=== PATIENT | female | born 1955 | race Caucasian/White ===

== ENCOUNTER 2017-07-07 10:53 | Day surgery (SDC) | payer OTHER, MEDICARE ==
[2017-07-07] MEDS ORDERED: Betamethasone Acetate/Betamethasone Sod Phosphate 30 MG/5 ML MDV ONE (11:37)
[2017-07-07] MEDS ORDERED: Lidocaine 2% 5 ML SDV ONE (11:38)
[2017-07-07] MEDS ORDERED: Iopamidol 408 MG/ML 50 ML SDV ONE (11:39)
[2017-07-07] MEDS ORDERED: Ropivacaine 0.5% 5 MG/ML 30 ML SDV ONE (11:39)
--- NOTE | 2017-07-07 20:03 | OR ---
SURGEON: Kanwal Medley D.O. DATE OF PROCEDURE: 07/07/2017 OR STAFF PRESENT: 1. Tiana Oshea. 2. Jovanna Coburn. 3. RT. Sherwin WOUND CLASSIFICATION: I. PREOPERATIVE DIAGNOSES: 1. Lumbar degenerative disk disease. 2. Lumbar spondylosis. 3. Lumbar radiculopathy. POSTOPERATIVE DIAGNOSES: 1. Lumbar degenerative disk disease. 2. Lumbar spondylosis. 3. Lumbar radiculopathy. PROCEDURE PERFORMED: 1. Caudal epidural steroid injection. 2. Fluoroscopic guidance for needle placement. 3. Local with oral Valium for sedation. SCREENING QUESTIONS: The patient answered "no" to all of the following questions: 1. Are you allergic to latex? 2. Do you have a bleeding disorder? 3. Do you have any current local or systemic infections? 4. Are you taking any anti-inflammatories or blood thinners? 5. Do you have any joint replacements, heart valve replacements, or a pacemaker? DESCRIPTION OF PROCEDURE: The patient had the procedure thoroughly explained including all possible risks, benefits and alternatives. Consent was signed in my clinic indicating understanding and willingness to proceed. The patient presented to [facility] and was escorted to the dressing room to disrobe and change into a hospital gown. Preoperative vital signs were taken and stable. The patient reported that Valium was taken prior to the procedure. The patient was brought back to the procedure room and placed in the prone position on the procedure room table. A pillow was placed under the hips in order to flatten the lumbar lordosis. The back was prepped with ChloraPrep and sterilely draped. All personnel in the operating room were dressed in appropriate attire including surgical scrubs, head and shoe covers. This was to ensure sterility while in the treatment room. During the time fluoroscopy was in use, all personnel in the operating room wore lead cosme with thyroid collars. Sterile technique was used throughout the procedure. The patient was awake and conversant throughout the procedure. There was no evidence of infection at the site of needle insertion. Skeletal landmarks were identified under fluoroscopy for the caudal epidural. Skin was anesthetized with 2% lidocaine with a sterile 27-gauge 1.5 inch needle. Then a 20-gauge Tuohy epidural needle was placed in the epidural space with loss of resistance technique under fluoroscopic guidance. No heme, cerebrospinal fluid, or paresthesias were noted. Isovue-200 contrast dye was injected in 0.2 cubic centimeter increments and seen to outline the epidural space in both AP and lateral views. There was no intravascular flow pattern observed under live fluoroscopy. Then 12 milligrams of Celestone was slowly injected after negative aspiration. The patient tolerated the procedure well. Vital signs were stable during and after the procedure. The staff escorted the patient to the recovery area and the patient was released in stable condition after a brief stay in the recovery room monitored by the nurse. The patient was given both oral and written discharge and follow up instructions with recommendation to follow up given for 2-3 weeks. The patient voiced understanding including understanding of those signs and symptoms that would require emergency care. The patient knows how to contact the office if there are any additional problems or questions in the meantime. PREOPERATIVE PAIN: 8/10. POSTOPERATIVE PAIN: 0/10. FOLLOWUP: Follow up in the Pain Clinic in [address]. [address] / ADDI /[id number] VIRGIL
== END 2017-07-07 14:33 ==
LOC: MW.SDS 10:53
PROVIDERS: ATTEND Anesthesiology
DX: M51.16 Intervertebral disc disorders with radiculopathy, lumbar region (principal); M47.896 Other spondylosis, lumbar region; F41.9 Anxiety disorder, unspecified; F32.9 Major depressive disorder, single episode, unspecified; I10 Essential (primary) hypertension; E66.9 Obesity, unspecified; E11.9 Type 2 diabetes mellitus without complications; G47.30 Sleep apnea, unspecified; Z79.82 Long term (current) use of aspirin; Z79.84 Long term (current) use of oral hypoglycemic drugs; Z79.899 Other long term (current) drug therapy
CPT/HCPCS: 62323; J0702; J2795; Q9966

== ENCOUNTER 2021-02-27 06:24 | Day surgery (SDC) | payer MEDICARE, OTHER ==
[~2021-02-27 06:24] MED LIST: Acetaminophen 1,000 MG in Premix Bag 1 BAG IV ONE
[2021-02-27] MEDS ORDERED: Lactated Ringers 1,000 ML IV SCH (06:45)
--- NOTE | 2021-02-27 07:09 | PCM.PREANE ---
Preanesthetic Assessment - Procedure Proposed Procedure: EGD - Anesthesia/Transfusion/Family Hx Anesthesia History: Prior Anesthesia Without Reaction Other Type of Anesthesia Reaction Comment: "spinal's dont work for me" "I woke up during my knee replacement" Family History of Anesthesia Reaction: No Transfusion History: No Prior Transfusion(s) - Review of Systems General: No Symptoms Pulmonary: No Symptoms (Remote smoking hx, LESLYE does NOT use CPAP) Cardiovascular: No Symptoms (HTN, HLD) Gastrointestinal: No Symptoms (Occas Heartburn) Neurological: No Symptoms Other: Reports: Diabetes (NIDDM with BG this AM of 107) - Physical Assessment NPO Status Date: 02/26/21 NPO Status Time: 18:00 Vital Signs: Last Vital Signs Temp 98.4 F 02/27/21 06:33 Pulse 83 02/27/21 06:33 Resp 16 02/27/21 06:33 BP 147/76 H 02/27/21 06:33 Pulse Ox 97 02/27/21 06:33 Height: 5 ft 1 in Weight: 108.409 kg ASA Class: 3 Mental Status: Alert & Oriented x3 Airway Class: Mallampati = 3 Dentition: Reports: Dentures (Upper full denture) Thyro-Mental Finger Breadths: 3 Mouth Opening Finger Breadths: 3 ROM/Head Extension: Full Lungs: Clear to Auscultation, Normal Respiratory Effort Cardiovascular: Regular Rate, Regular Rhythm - Allergies Allergies/Adverse Reactions: Allergies Allergy/AdvReac Type Severity Reaction Status Date / Time No Known Allergies Allergy Verified 02/21/21 10:45 - Acknowledgements Anesthesia Type Planned: General Anesthesia Pt an Appropriate Candidate for the Planned Anesthesia: Yes Alternatives and Risks of Anesthesia Discussed w Pt/Guardian: Yes Pt/Guardian Understands and Agrees with Anesthesia Plan: Yes PreAnesthesia Questionnaire HEENT History: Reports: Impaired Vision Other HEENT History: wears glasses, has upper denture Cardiovascular History: Reports: High Cholesterol, Hypertension Respiratory History: Reports: Sleep Apnea Other Respiratory History: does NOT use CPAP (unable to tolerate the mask) Gastrointestinal History: Reports: GERD Genitourinary History: Reports: None HOG CUTTER History: Reports: Musculoskeletal History: Reports: Arthritis, Back Pain, Chronic Other Musculoskeletal History: DDD Neurological History: Reports: Vertigo Psychiatric History: Reports: Anxiety, Depression Endocrine/Metabolic History: Reports: Diabetes, Type II, Obesity/BMI 30+ Hematologic History: Reports: None Immunologic History: Reports: None Oncologic (Cancer) History: Reports: None Dermatologic History: Reports: None - Past Surgical History Head Surgeries/Procedures: Reports: None HEENT Surgical History: Reports: Adenoidectomy, Cataract Surgery, Tonsillectomy, Other (See Below) Other HEENT Surgeries/Procedures: pt. states had "removal of ear drum" Cardiovascular Surgical History: Reports: None Respiratory Surgical History: Reports: None GI Surgical History: Reports: Colonoscopy, EGD Female Surgical History: Reports: Hysterectomy Endocrine Surgical History: Reports: None Neurological Surgical History: Reports: None Musculoskeletal Surgical History: Reports: Arthroscopic Knee, Carpal Tunnel, Knee Replacement, Shoulder Surgery Other Musculoskeletal Surgeries/Procedures:: bilateral knee replacements, CTR, schoulder arthroscopy with removal of bone spur Oncologic Surgical History: Reports: None Dermatological Surgical History: Reports: None - SUBSTANCE USE Tobacco Use Status *Q: Never Tobacco User Recreational Drug Use History: No - HOME MEDS Home Medications: Home Meds Furosemide 40 mg PO DAILY 03/10/14 [History] Metoprolol Succinate [Toprol XL 100mg] 100 mg PO BRK 03/10/14 [History] Potassium Chloride [Klor-Con M20] 20 meq PO DAILY 03/10/14 [History] Aspirin [Adult Low Dose Aspirin EC] 81 mg PO DAILY 09/24/15 [History] Butalbital/Acetaminophen [Butalbital-Acetaminophn 50-325] 1 - 2 tab PO ASDIRECTED PRN 02/21/21 [History] DULoxetine HCl [Cymbalta] 30 mg PO DAILY 02/21/21 [History] Gabapentin [Neurontin] 1 - 2 tab PO ASDIRECTED 02/21/21 [History] Omeprazole 20 mg PO DAILY 02/21/21 [History] Pravastatin Sodium 20 mg PO DAILY 02/21/21 [History] Semaglutide [Ozempic] 1 injection SUBCUT WEEKLY 02/21/21 [History] bisacodyL [Dulcolax] 1 - 2 tab PO DAILY PRN 02/21/21 [History] metFORMIN HCl [Metformin HCl] 1,000 mg PO WITHBREAKFAST 02/21/21 [History] polyethylene glycoL 3350 [Miralax] 1 dose PO ASDIRECTED PRN 02/21/21 [History] valACYclovir HCl [valACYclovir] 2 tab PO ASDIRECTED PRN 02/21/21 [History] - CURRENT (IN HOUSE) MEDS Current Meds: Current Medications Lactated Ringer's (Ringers, Lactated) 1,000 mls @ 100 mls/hr IV ASDIRECTED [facility] Last Admin: 02/27/21 06:58 Dose: 100 mls/hr Documented by: Discontinued Medications Acetaminophen 1,000 mg/ Premix 100 mls @ 400 mls/hr IV ONCALL ONE Stop: 02/15/21 11:32
[2021-02-27] MEDS ORDERED: fentaNYL 100 MCG/2 ML SDV ONE (07:15)
[2021-02-27] MEDS ORDERED: Propofol 200 MG/20 ML SDV ONE (07:15)
--- NOTE | 2021-02-27 08:11 | PCM.OPNOTE ---
- General Post-Op/Procedure Note Date of Surgery/Procedure: 02/27/21 Operative Procedure(s): EGD with biopsies Findings: Mild gastritis and duodenitis dictation number [id number] Pre Op Diagnosis: Nausea and vomiting, abdominal bloating Post-Op Diagnosis: Mild gastritis and duodenitis Primary Surgeon: Jr Viera Pathology: Biopsies Complications: None Condition: Good
--- NOTE | 2021-02-27 08:20 | PCM.POSTAN ---
POST ANESTHESIA ASSESSMENT - MENTAL STATUS Mental Status: Alert, Oriented - VITAL SIGNS Vital Signs: Last Vital Signs Temp 98.4 F 02/27/21 06:33 Pulse 83 02/27/21 06:33 Resp 16 02/27/21 06:33 BP 147/76 H 02/27/21 06:33 Pulse Ox 97 02/27/21 06:33 - RESPIRATORY Respiratory Status: Respiratory Rate WNL, Airway Patent, O2 Saturation Stable - CARDIOVASCULAR CV Status: Pulse Rate WNL, Blood Pressure Stable - GASTROINTESTINAL GI Status: No Symptoms - PAIN Pain Score: 0 - POST OP HYDRATION Hydration Status: Adequate & Stable
--- NOTE | 2021-02-27 08:27 | PCM48HPAN ---
Post Anesthesia Note - EVALUATION WITHIN 48HRS OF ANESTHETIC Vital Signs in Normal Range: Yes Patient Participated in Evaluation: Yes Respiratory Function Stable: Yes Airway Patent: Yes Cardiovascular Function Stable: Yes Hydration Status Stable: Yes Pain Control Satisfactory: Yes Nausea and Vomiting Control Satisfactory: Yes Mental Status Recovered: Yes Vital Signs: Last Vital Signs Temp 97.9 F 02/27/21 08:12 Pulse 83 02/27/21 08:22 Resp 18 02/27/21 08:22 BP 129/60 02/27/21 08:22 Pulse Ox 95 02/27/21 08:22 - COMMENTS/OBSERVATIONS Free Text/Narrative:: Pt doing well post-op. VSS. No apparent anesthetic complications. Dr. Nehemias Gottlieb
[2021-02-27 08:32] VITALS: BP 104/76; PULSE 78
--- NOTE | 2021-02-27 15:05 | OR ---
SURGEON: FANY LAWRENCE MD DATE OF PROCEDURE: 02/27/2021 PREOPERATIVE DIAGNOSES: 1. Nausea. 2. Vomiting. 3. Abdominal bloating. POSTOPERATIVE DIAGNOSES: 1. Mild gastritis. 2. Some minimal duodenitis. PROCEDURE PERFORMED: Esophagogastroduodenoscopy with cold biopsies. ANESTHESIA: With Anesthesia. EXTENT OF ESOPHAGOGASTRODUODENOSCOPY: To the duodenum. LIMITATIONS: None. REASON FOR PROCEDURE: The patient is a pleasant 65-year-old female who said that she had one day of nausea, vomiting, and abdominal cramps and was vomiting 5 times a day. She denies any issues with swallowing. She also was having some chronic migraines. She says her migraines got away, and her nausea and vomiting have improved, but she still gets some abdominal bloating, especially now after eating, but she says her symptoms seem to be slowly going away. PROCEDURE IN DETAIL: Physical exam was performed. The major risks and benefits associated with the procedure were explained to the patient in detail. The patient verbalized understanding of the same. The patient was then connected to the appropriate devices and IV started. EKG, pulse, pulse oximetry, blood pressure, and capnography were monitored throughout the entire procedure. Continuous oxygen and sedation were provided by the anesthesiologist. After a time-out was performed, the patient's sedation was began. After adequate sedation was achieved, an upper endoscope was advanced under direct visualization without difficulty in the upper GI tract. The anatomy and mucosa of the esophagus, GE junction, stomach, pylorus, and duodenum were inspected. The duodenum bulb had a little bit of irritation and some duodenitis, but on further advancement, the mucosa became more normal. Biopsies were taken of the duodenal bulb. The scope was brought back to the pylorus, and both retro and antegrade views of the stomach were done. Again, the patient had some mild gastritis, but no ulcerations. I did do biopsies of the antrum and pylorus area to check for H pylori. I also did some random biopsies of the stomach body. The scope was brought to the GE junction. GE junction had a good Z-line with a good squamocolumnar junction. The GE junction was at approximately 35 cm from her incisors. The scope was brought up into the stomach. The stomach was deinsufflated. The scope was then brought up through the esophagus. Esophagus also felt normal. The scope was completely removed, and the procedure was terminated. ENDOSCOPIC DIAGNOSIS: Some mild gastritis and duodenitis. RECOMMENDATIONS: The patient is follow up in clinic to go over the pathology. She should continue on her omeprazole. APRIL FONTANA /[id number]
== END 2021-02-27 08:55 | disposition home or self-care (01) ==
LOC: MW.SDS 06:24
PROVIDERS: ATTEND Surgery
DX: K29.00 Acute gastritis without bleeding (principal); K29.50 Unspecified chronic gastritis without bleeding; B96.81 Helicobacter pylori [H. pylori] as the cause of diseases classified elsewhere; K29.80 Duodenitis without bleeding; G89.29 Other chronic pain; I10 Essential (primary) hypertension; G43.909 Migraine, unspecified, not intractable, without status migrainosus; E66.01 Morbid (severe) obesity due to excess calories; G47.30 Sleep apnea, unspecified; E11.9 Type 2 diabetes mellitus without complications; Z79.82 Long term (current) use of aspirin; Z79.899 Other long term (current) drug therapy; Z79.84 Long term (current) use of oral hypoglycemic drugs; Z90.49 Acquired absence of other specified parts of digestive tract; Z98.890 Other specified postprocedural states; Z68.42 Body mass index [BMI] 45.0-49.9, adult
CPT/HCPCS: 43239; 82947; 88305; 88342; J2704; J3010; J7120; 00731

== ENCOUNTER 2021-07-10 10:22 | Day surgery (SDC) | payer MEDICARE, OTHER ==
[~2021-07-10 10:22] MED LIST changes: -Acetaminophen 1,000 MG in Premix Bag 1 BAG IV ONE; +Acetaminophen 1,000 MG in Premix Bag 1 BAG IV SCH; +Albuterol 0.083% 2.5 MG/3 ML Neb Soln NEB PRN; +HYDROmorphone 1 MG/ML Syringe IVPUSH PRN; +Lactated Ringers 1,000 ML IV SCH; +Metoclopramide 10 MG/2 ML SDV IVPUSH PRN; +Morphine 4 MG/ML VIAL IVPUSH PRN; +Naloxone 0.4 MG/ML SDV IVPUSH PRN; +Ondansetron 4 MG/2 ML SDV IVPUSH PRN; +Pregabalin 75 MG Cap PO SCH; +Scopolamine 1.5 MG Transdermal Patch ONE; +cefOXitin 2 GM in Premix Bag 1 BAG IV SCH; +fentaNYL 100 MCG/2 ML SDV IVPUSH PRN
[2021-07-10] MEDS ORDERED: Octyl 2-Cyanoacrylate 1 Tube ONE (10:29)
[2021-07-10] MEDS ORDERED: Pregabalin 75 MG Cap ONE (11:28)
[2021-07-10] MEDS ORDERED: Propofol 200 MG/20 ML SDV ONE (11:37)
[2021-07-10] MEDS ORDERED: Dexamethasone 4 MG/ML 5 ML MDV ONE (11:39)
[2021-07-10] MEDS ORDERED: Midazolam 1 MG/ML 2 ML SDV ONE (11:39)
[2021-07-10] MEDS ORDERED: Ondansetron 4 MG/2 ML SDV ONE (11:39)
[2021-07-10] MEDS ORDERED: Rocuronium Bromide 50 MG/5 ML Syringe ONE (11:39)
[2021-07-10] MEDS ORDERED: fentaNYL 250 MCG/5 ML SDV ONE (12:00)
[2021-07-10] MEDS ORDERED: Bupivacaine 0.5% 30 ML SDV ONE (12:02)
[2021-07-10] MEDS ORDERED: Water For Injection, Sterile 20 ML ONE ×2 (12:04→12:05)
[2021-07-10] MEDS ORDERED: cefOXitin 1 GM Vial ONE (12:04)
[2021-07-10] MEDS ORDERED: Sugammadex Sodium 200 MG/2 ML VIAL ONE (12:56)
[2021-07-10] MEDS ORDERED: ePHEDrine 50 MG/ML SDV ONE (12:59)
[2021-07-10] MEDS ORDERED: Glycopyrrolate 0.2 MG/ML SDV ONE (13:01)
[2021-07-10] MEDS ORDERED: Acetaminophen/HYDROcodone 325-5 MG Tab PO PRN (15:08)
[2021-07-10 15:59] VITALS: BP 104/59; PULSE 85
== END 2021-07-10 16:05 | disposition home or self-care (01) ==
LOC: MW.SDS 10:22
PROVIDERS: ATTEND Surgery
DX: K80.10 Calculus of gallbladder with chronic cholecystitis without obstruction (principal); F41.9 Anxiety disorder, unspecified; G89.29 Other chronic pain; F32.A Depression, unspecified; I10 Essential (primary) hypertension; G47.00 Insomnia, unspecified; G43.909 Migraine, unspecified, not intractable, without status migrainosus; E66.01 Morbid (severe) obesity due to excess calories; G47.30 Sleep apnea, unspecified; E78.00 Pure hypercholesterolemia, unspecified; E11.9 Type 2 diabetes mellitus without complications; Z79.82 Long term (current) use of aspirin; Z79.899 Other long term (current) drug therapy; Z79.84 Long term (current) use of oral hypoglycemic drugs; Z98.890 Other specified postprocedural states; Z68.41 Body mass index [BMI] 40.0-44.9, adult
CPT/HCPCS: 47562; 82947; A9270; J0131; J0694; J1100; J2250; J2370; J2405; J2704; J3010; J3490; J7120; 00790

== ENCOUNTER 2024-05-27 08:40 | Day surgery (SDC) | payer MEDICARE, OTHER ==
[2024-05-27] MEDS: Lactated Ringers 1,000 ML IV SCH (09:23)
[2024-05-27] MEDS ORDERED: propofoL 500 MG/50 ML 50 ML ONE (09:48)
[2024-05-27] MEDS ORDERED: Lidocaine 2% 5 ML SDV ONE (09:48)
[2024-05-27 11:30] VITALS: BP 125/80; PULSE 74
== END 2024-05-27 11:50 | disposition home or self-care (01) ==
LOC: MW.SDS 08:40
PROVIDERS: ATTEND Surgery
DX: D12.6 Benign neoplasm of colon, unspecified (principal); K29.50 Unspecified chronic gastritis without bleeding; K44.9 Diaphragmatic hernia without obstruction or gangrene; I10 Essential (primary) hypertension; E78.00 Pure hypercholesterolemia, unspecified; E11.9 Type 2 diabetes mellitus without complications; E66.01 Morbid (severe) obesity due to excess calories; Z79.82 Long term (current) use of aspirin; Z79.84 Long term (current) use of oral hypoglycemic drugs; Z79.899 Other long term (current) drug therapy; Z68.41 Body mass index [BMI] 40.0-44.9, adult
CPT/HCPCS: 43239; 45380; 88305; J2704; J7120; 00813; J3490